=== PATIENT | male | born 1980 | race Caucasian/White ===

== ENCOUNTER 2022-07-26 10:30 | Outpatient (CLI) | payer OTHER, SELFPAY ==
--- NOTE | ~2022-07-26 | CT_ITS ---
EXAMINATION: CT abdomen pelvis w con DATE: 07/26/2022 11:01 INDICATION: Left-sided abdominal pain and tenderness TECHNIQUE: Computed tomography (CT) of the abdomen and pelvis was performed with 100 mL Omnipaque-350 intravenous contrast. Automated exposure control and iterative reconstruction technique were employe d. The dose-length product was 1671.52 mGy-cm. COMPARISON: None FINDINGS: 5-6 mm left lower lobe nodule. Heart size is normal. No pericardial or pleural effusion. Liver, gallb ladder, spleen, pancreas, bilateral adrenal glands and kidneys are normal. No abnormal bowel wall thi ckening or obstruction. Normal appendix. Bladder is normal. No free intraperitoneal gas or fluid. No pathologically enlarged abdominal or pelvic lymphadenopathy. Old healed right posterior right 11th ri b fracture. 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 IMPRESSION: 1. No acute intra-abdominal/pelvic process. 2. Indeterminate 5-6 mm left lower lobe pulmonary nodule. If the patient is low risk for lung cancer, no follow-up is needed. If the patient is high risk (i.e., history of smoking or asbestos or signifi cant radiation exposure), optional follow-up chest CT could be considered at 12 months. Reviewed, dictated and finalized at location L. ORKS COMPUTER CONSULTANT IMPRESSION: 1. No acute intra-abdominal/pelvic process. 2. Indeterminate 5-6 mm left lower lobe pulmonary nodule. If the patient is low risk for lung cancer, no follow-up is needed. If the patient is high risk (i.e ., history of smoking or asbestos or significant radiation exposure), optional follow-up chest CT could be considered at 12 months.
[2022-07-26 10:53] LABS: Estimated Glomerular Filt Rate > 60
[2022-07-26 11:39] LABS: Basophils Percent Auto 0.4 % (0.2-1.2); Eosinophils Absolute Auto 0.2 K/mm3 (0-0.3); Eosinophils Percent Auto 2.7 % (0-4.4); Hematocrit 44.2 % (42.0-52.0); Hemoglobin 14.7 g/dL (14.0-18.0); Immature Granulocyte Absolute 0.03 K/mm3 (0.00-0.031); Immature Granulocyte Percent A 0.4 % (0-0.5); Lymphocytes Absolute Auto 1.88 K/mm3 (0.9-3.2); Lymphocytes Percent Auto 26.8 % (18.3-44.2); Mean Corpuscular HGB Conc 33.3 g/dl (32-36); Mean Corpuscular Volume 96.3 fl (80-100); Mean Platelet Volume 10.8 fl (7.4-10.4); Monocytes Absolute Auto 0.5 K/mm3 (0.1-0.6); Monocytes Percent Auto 6.7 % (2.6-8.5); Neutrophils Absolute Auto 4.4 K/mm3 (1.3-6.7); Platelet Count Result 188 k/mm3 (150-375); Red Blood Count 4.59 M/mm3 (4.6-6.20)
[2022-07-26 11:47] LABS: Alanine Aminotransferase 38 U/L (6-50); Albumin Level 4.4 g/dL (3.5-5.1); Alkaline Phosphatase 69 U/L (38-126); Anion Gap 4 mmol/L (8-16); Aspartate Amino Transferase 36 U/L (17-59); Bilirubin,Total 0.7 mg/dL (0.2-1.3); Blood Urea Nitrogen 13 mg/dL (9-20); Calcium 8.9 mg/dL (8.4-10.2); Carbon Dioxide 27 mmol/L (22-30); Chloride 102 mmol/L (98-107); Cholesterol 108 mg/dL (0-200); Estimated Glomerular Filt Rate > 60; Glucose 103 mg/dL (65-110); HDL Direct 48 mg/dL; Potassium 4.7 mmol/L (3.4-5.0); Sodium 133 mmol/L (137-145); Triglycerides 69 mg/dL (<150)
[2022-07-26 11:59] LABS: LDL Cholesterol Direct 39 mg/dL
[2022-07-26 13:47] LABS: Prostate Specific Antigen 0.5 ng/mL (< OR = 4.0)
[2022-07-26 14:48] LABS: Vitamin D 25 Hydroxy 14.6 ng/mL
== END 2022-07-26 10:31 | disposition home or self-care (01) ==
PROVIDERS: PCP Family Medicine; Visit Provider Nurse Practitioner Family
DX: R10.9 Unspecified abdominal pain (principal); R10.819 Abdominal tenderness, unspecified site; R91.8 Other nonspecific abnormal finding of lung field; E78.49 Other hyperlipidemia; E55.9 Vitamin D deficiency, unspecified; Z12.5 Encounter for screening for malignant neoplasm of prostate; Z13.29 Encounter for screening for other suspected endocrine disorder
CPT/HCPCS: 74177; 80053; 80061; 82306; 84153; 84443; 85025; G0103; Q9967

== ENCOUNTER 2023-07-25 15:24 | Outpatient (CLI) | payer OTHER, SELFPAY ==
--- NOTE | ~2023-07-25 | XR_ITS ---
EXAMINATION: XR hand LT 2V DATE: 07/25/2023 15:42 INDICATION: Left hand pain. TECHNIQUE: 2 views of left hand were obtained. COMPARISON: None. FINDINGS: Bone alignment is normal. No fracture. Joint spaces are normal. IMPRESSION: 1. Normal left hand. Reviewed, dictated and finalized at location E. LE FUSION MIDDLEWARE ARCHITECT IMPRESSION: 1. Normal left hand.
== END 2023-07-25 15:25 | disposition home or self-care (01) ==
LOC: ANHIMG 15:26
PROVIDERS: PCP Family Medicine; Visit Provider Nurse Practitioner Family
DX: M79.642 Pain in left hand (principal)
CPT/HCPCS: 73120

== ENCOUNTER 2023-08-14 13:32 | Outpatient (CLI) | payer OTHER, SELFPAY ==
--- NOTE | ~2023-08-14 | CT_ITS ---
CT Scan of the Chest without Contrast: Clinical Indication: Pulmonary nodule Technique: Contiguous sections were acquired throughout the chest without intravenous contrast. Dose reduction technique was used on this scan by utilizing automated exposure control and iterative recon struction technique. The dose-length product (DLP) was 596.50 mGy-cm. Findings: There is no evidence of any significant mediastinal, hilar or axillary lymphadenopathy. The mediastin al soft tissues appear normal. There is no evidence of pleural or pericardial effusion. 3 mm pulmonary nodule in the posterior right upper lobe (axial image 29). There are 2 subcentimeter p leural-based nodules at the right lung base (axial image 69). There is a 4 mm nodule along the left f issure (axial image 50). Additional 5 mm nodule adjacent to the left fissure is also present (axial i mage 53). Additional 5 mm nodule noted more inferiorly in the left lower lobe (axial image 71). Images through the upper abdomen reveal no abnormalities. Impression: Subcentimeter pulmonary nodules, as above. According to Fleischner Society criteria, for a low-risk p atient, no further follow-up required. For a high-risk patient, consider 12 month follow-up CT. Reviewed, dictated and finalized at location M. ION OPERATOR Impression: Subcentimeter pulmonary nodules, as above. According to Fleischner Society mandi rivas, for a low-risk patient, no further follow-up required. For a high-risk pa tient, consider 12 month follow-up CT.
== END 2023-08-14 13:33 | disposition home or self-care (01) ==
PROVIDERS: PCP Family Medicine; Visit Provider Nurse Practitioner Family
DX: R91.1 Solitary pulmonary nodule (principal); R91.8 Other nonspecific abnormal finding of lung field
CPT/HCPCS: 71250

== ENCOUNTER 2024-08-07 10:02 | Outpatient (CLI) | payer BC, SELFPAY ==
--- NOTE | ~2024-08-07 | CT_ITS ---
CT Scan of the Chest without Contrast: Clinical Indication: Abnormal finding of lung field Technique: Contiguous sections were acquired throughout the chest without intravenous contrast. Dose reduction technique was used on this scan by utilizing automated exposure control and iterative recon struction technique. The dose-length product (DLP) was 1061.09 mGy-cm. COMPARISON: 08/14/2023 Findings: There is no evidence of any significant mediastinal, hilar or axillary lymphadenopathy. The mediastin al soft tissues appear normal. There is no evidence of pleural or pericardial effusion. Stable subcentimeter pleural-based nodules right lower lobe. Stable subcentimeter left lower lobe nod ules, especially along the fissure. Images through the upper abdomen reveal no abnormalities. Impression: Stable subcentimeter pulmonary nodules, as above. Reviewed, dictated and finalized at [facility]. INFORMATICA ARCHITECT Impression: Stable subcentimeter pulmonary nodules, as above.
--- OUTSIDE RECORDS SUMMARY | 2024-08-07 11:02 | XMS_ITS | Clinical Summary ---
Author Organization [facility] Address [address] [place] [address] Care Team Providers Care Combination Man Name Role Phone Perez Fortune MD Primary Care Provider + Allergies No known active allergies Medications prasugreL (EFFIENT) 10 mg Tablet Take 1 Tablet by mouth daily. 05/31/2021 Active folic acid (FOLVITE) 1 mg tablet 07/12/2021 Active atorvastatin (LIPITOR) 40 mg tablet Take 40 mg by mouth daily. 03/25/2020 Active atenoloL (TENORMIN) 25 mg tablet 04/29/2021 Active enalapril (VASOTEC) 10 mg tablet Take 1 Tablet by mouth daily. 05/07/2021 Active aspirin (ECOTRIN EC) 81 mg Tablet, Delayed Release (E.C.) Take 81 mg by mouth daily. Active folic acid-Vit B6-Vit B12 (FOLTX) 2.5-25-2 mg Tablet Take 1 Tablet by mouth daily. 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 Family History Medical History Relation Name Comments Diabetes Brother SLE Mother Relation Name Status Comments Brother Alive Daughter 1 Alive Daughter 2 Alive Father Alive Mother Alive Sister Alive hyperhomocystin emia Son Alive Social History Tobacco Use Types Packs/Day Years Used Date Smoking Tobacco: Every Day Cigarettes Smokeless Tobacco: Never Alcohol Use Standard Drinks/Week Comments Yes 0 (1 standard drink = 0.6 oz pur e alcohol) Sex and Gender Information Value Date Recorded Sex Assigned at Not on file Legal Sex Male 1:46 PM ART GILDER Gender Identity Not on file Sexual Orientation Not on file Last Filed Vital Signs Vital Sign Reading Time Taken Comments Blood Pressure 123/85 07/14/2021 3:27 PM ART GILDER Pulse 91 07/14/2021 3:27 PM ART GILDER Temperature 37 ??C (98.6 ??F) 07/14/2021 3:27 PM ART GILDER Respiratory Rate - - Oxygen Saturation 95% 07/14/2021 3:27 PM ART GILDER Inhaled Oxygen Concentration - - Weight 170.4 kg (375 lb 9.6 oz) 07/14/2021 3:27 PM ART GILDER Height 182.9 cm (6') 07/14/2021 3:27 PM ART GILDER Body Mass Index 50.94 07/14/2021 3:27 PM ART GILDER Plan of Treatment Health Maintenance Due Date Last Done Comments PNEUMOCOCCAL VACCINE 0-64 YE ARS (1 of 2 - PCV) 1987 DTAP/TDAP/TD VACCINES (1 - Tdap) 2000 HEPATITIS B VACCINES (1 of 3 - 19+ 3-dose series) 2000 INFLUENZA VACCINE (#1) 2024 Preventative Visit- Commercial 07/03/2024 HPV VACCINES Aged Out No longer eligi ble based on patient's age to complete this topic Insurance [facility] [address] [id number] Care Teams Combination Man Relationship Specialty Start Date End Date Perez Fortune MD PCP - General Internal Medicine 07/14/21
--- OUTSIDE RECORDS SUMMARY | 2024-08-07 11:02 | XMS_ITS | Clinical Summary ---
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 Gender Identity Not on file Sexual Orientation Not on file Plan of Treatment Health Maintenance Due Date Last Done Comments Annual Physical 1984 Hepatitis C 1999 DTaP, Tdap and Td Vaccines (1 - Tdap) 2000 03/05/1986, 07/07/1982, 02/01/1982, Additional history exists Hepatitis B Vaccines (1 of 3 - 19+ 3-dose series) 2000 COVID-19 Vaccine (2023- season) 2024 Influenza Adult (#1) 2024 HPV Vaccines Aged Out No longer eligi ble based on patient's age to complete this topic Meningococcal B Vaccine Aged Out No l onger eligible based on patient's age to complete this topic Meningococcal Vaccine Aged Out No kimberly tyrell eligible based on patient's age to complete this topic Pneumococcal Vaccine: Pediatrics (0 to 5 Years) and At-Risk Patients (6 to 64 Years) Aged Out No longer eligible based on patient's age to complete this topic RSV Immunizations Under 20 Months Aged Out No longer eligible based on patient's age to complete this topic Insurance [facility] Care Teams Tank Cooper Relationship Specialty Start Date End Date Bebeto Wayne MD [address] [address] PCP - General FAMILY PRACTICE 11/13/19
--- OUTSIDE RECORDS SUMMARY | 2024-08-07 11:02 | XMS_ITS | Clinical Summary ---
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 Gender Identity Not on file Sexual Orientation Not on file Plan of Treatment Health Maintenance Due Date Last Done Comments Hepatitis C Virus (HCV) Screening 1981 Hepatitis B Immunization (1 of 3 - 19+ 3-dose series) 2000 Influenza Immunization (#1) 2024 SARS-COV-2 Immunization ( season) 2024 Respiratory Syncytial Virus (RSV) Immunization (Adult) (1 - 1-dose 75+ series) 2056 DTaP/Tdap/Td Immunization Discontinued 2012, 03/08/1995, 03/05/1986, Additional history exists TdaP Immunization Completed 10/18/2012 Meningococcal Immunization (ACWY) Aged Out No longer eligible based on patient's age to complete this topic Pneumococcal Immunization Combined Aged Out No longer eligible based on patient's age to complete this topic Rotavirus Immunization Aged Out No lo nger eligible based on patient's age to complete this topic
--- OUTSIDE RECORDS SUMMARY | 2024-08-07 11:02 | XMS_ITS | Referral Summary ---
Author Organization [facility] [address] Address [address] [place] [address] Care Team Providers Care Inventory Control/Shipping Receiving Name Role Phone Bebeto Wayne MD Primary Care Provider [phone] Allergies No known active allergies Medications aspirin (ASPIRIN LOW DOSE) 81 mg tablet take 1 tablet (81MG) by oral route every day 0 3 Active atenoloL (TENORMIN) 25 mg tablet Take 1 tablet (25 mg total) by mouth daily 90 tablet 3 0 Active prasugreL (EFFIENT) tablet TAKE 1 TABLET DAILY 90 tablet 3 4 Active folic acid (FOLVITE) 1 mg tablet Take 1 tablet (1 mg total) by mouth daily 90 tablet 4 Active folic acid-vitamin B6-vitamin B12 (Folbic) 2.5-25-2 mg tablet Take 1 tablet by mouth daily 90 tablet 4 Active atorvastatin (LIPITOR) 40 mg tablet TAKE 1 TABLET DAILY 90 tablet 2 5 Active enalapril (VASOTEC) 10 mg tablet Take 1 tablet (10 mg total) by mouth daily 90 tablet 1 5 Active enalapril (VASOTEC) 10 mg tablet TAKE 1 TABLET DAILY 90 tablet 3 4 025 Discontinued(Re order) atorvastatin (LIPITOR) 40 mg tablet TAKE 1 TABLET DAILY 90 tablet 4 025 Discontinued Active Problems Problem Noted Date Diagnosed Date [place] (myocardial infarction) 03/14/2023 Mixed hyperlipidemia 05/21/2021 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 Morbid obesity with BMI of 45.0-49.9, adult 03/12/2018 Coronary artery disease invo lving [place] coronary artery of [place] heart without angina pectoris 05/31/2017 H/O non-ST elevation myocardial infarction (NSTE [place]) 05/31/2017 S/P coronary artery stent placement 05/31/2017 Anxiety 02/17/2015 Overview (10/07/2016): Anxiety Chest pain 04/14/2014 Overview (10/07/2016): Chest pain Resolved Problems Problem Noted Date Diagnosed Date Resolved Date Obesity (BMI 35.0-39.9 without comorbidity) 05/31/2017 11/26/2021 Dyslipidemia 05/31/2017 05/21/2021 Body mass index 40+ - severely obese 03/17/2016 10/28/2022 Overview (10/07/2016): Morbid obesity with BMI of 40.0-44.9, adult History of placement of sten t for coronary artery disease 05/26/2015 06/01/2022 Overview (10/07/2016): S/P coronary artery stent placement Social History Tobacco Use Types Packs/Day Years Used Date Smoking Tobacco: Former Smokeless Tobacco: Never Alcohol Use Standard Drinks/Week Comments No 0 (1 standard drink = 0.6 oz pur e alcohol) Sex and Gender Information Value Date Recorded Sex Assigned at Not on file Legal Sex Male 10:22 AM POLISHER IMPLANT Gender Identity Not on file Sexual Orientation Not on file Last Filed Vital Signs Vital Sign Reading Time Taken Comments Blood Pressure 124/76 02/15/2024 9:40 AM CDT Pulse 65 02/15/2024 9:40 AM CDT Temperature - - Respiratory Rate - - Oxygen Saturation 99% 02/15/2024 9:40 AM CDT Inhaled Oxygen Concentration - - Weight 155.4 kg (342 lb 8 oz) 02/15/2024 9:40 AM CDT Height 182.9 cm (6') 02/15/2024 9:40 AM CDT Body Mass Index 46.45 02/15/2024 9:40 AM CDT Plan of Treatment Not on file Insurance BLUE [employer] OOS Care Teams Inventory Control/Shipping Receiving Relationship Specialty Start Date End Date Bebeto Wayne MD PCP - General 09/30/16
--- OUTSIDE RECORDS SUMMARY | 2024-08-07 11:02 | XMS_ITS | Clinical Summary ---
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 Morbid obesity with BMI of 45.0-49.9, adult 12/2018 Coronary artery disease invo lving [place] coronary artery of [place] heart without angina pectoris 05/31/2017 H/O non-ST elevation myocardial infarction (NSTE [place]) 05/31/2017 S/P coronary artery stent placement 05/31/2017 [...] Overview (10/07/2016): S/P coronary artery stent placement Surgical History Surgery Date Site/Laterality Comments OTHER SURGICAL HISTORY 07/03/2010 - 07/02/2011 Coronary Stent Placement ([facility]) CARDIAC CATHETERIZATION CORONARY ANGIOPLASTY Medical History Medical History Date Comments Chronic coronary artery disease Coronary Artery Disease Myocardial infarction (HCC) Myoc ardial infarction Hx Other Medical Obesity, Morbid Hypertension Hypertension Hyperlipidemia [place] (myocardial infarction) (HCC) Clotting disorder (CMS/HCC) (HCC) Family History Medical History Relation Name Comments No Known Problems Father No Known Problems Mother Relation Name Status Comments Father Mother Social History Tobacco Use Types Packs/Day Years Used Date Smoking Tobacco: Former Smokeless Tobacco: Never Alcohol Use Standard Drinks/Week Comments No 0 (1 standard drink = 0.6 oz pur e alcohol) Sex and Gender Information Value Date Recorded Sex Assigned at Not on file Legal Sex Male 10:22 AM LEAF TINNER Gender Identity Not on file Sexual Orientation Not on file Obstetrics History Last Filed Vital Signs Vital Sign Reading [...] 02/15/2024 9:40 AM CDT Plan of Treatment Health Maintenance Due Date Last Done Comments Depression Screening 1981 Hepatitis C Screening 1981 Varicella Vaccines (1 of 2 - 13+ 2-dose series) 1994 Hepatitis B Screening 1999 Regular Well Visit/Exam 18-64 1999 DTaP/Tdap/Td Vaccine (7 - Td or Tdap) 10/18/2022 10/18/2012, 03/08/1995, 03/05/1986, Additional history exists Influenza Vaccine (#1) 2024 09/03/2014 HPV Vaccines Aged Out No longer eligi ble based on patient's age to complete this topic Pneumococcal vaccine <65 Aged Out No longer eligible based on patient's age to complete this topic Insurance [employer] OOS Care Teams Textile Machine Mechanic Relationship Specialty Start Date End Date Bebeto Wayne MD PCP - General 09/30/16
== END 2024-08-07 10:03 | disposition home or self-care (01) ==
PROVIDERS: PCP Family Medicine; Visit Provider Nurse Practitioner Family
DX: R91.8 Other nonspecific abnormal finding of lung field (principal)
CPT/HCPCS: 71250

== ENCOUNTER 2024-08-14 09:08 | Outpatient (CLI) | payer BC, SELFPAY ==
--- OUTSIDE RECORDS SUMMARY | 2024-08-14 09:47 | XMS_ITS | Clinical Summary ---
Author Organization [facility] [place] [address] Address [address] [place] [address] Care Team Providers Care Clothing Man Name Role Phone Bebeto Wayne MD Primary Care Provider [phone] Allergies No known active allergies Medications aspirin (ASPIRIN LOW DOSE) 81 mg tablet take 1 tablet (81MG) by oral route every day 0 3 Active atenoloL (TENORMIN) 25 mg tablet Take 1 tablet (25 mg total) by mouth daily 90 tablet 3 0 Active folic acid (FOLVITE) 1 mg tablet [...] mouth daily 90 tablet 1 5 Active prasugreL (EFFIENT) tablet Take 1 tablet (10 mg total) by mouth daily 90 tablet 1 5 Active enalapril (VASOTEC) 10 mg tablet TAKE 1 TABLET DAILY 90 tablet 3 4 025 Discontinued(Re order) prasugreL (EFFIENT) tablet TAKE 1 TABLET DAILY 90 tablet 3 4 025 Discontinued(Re order) atorvastatin (LIPITOR) 40 mg tablet TAKE 1 TABLET DAILY 90 tablet 4 025 Discontinued Active Problems Problem Noted Date Diagnosed Date [place] (myocardial infarction) 03/14/2023 Mixed hyperlipidemia 05/21/2021 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 Morbid obesity with BMI of 45.0-49.9, adult 12/2018 Coronary artery disease invo lving [place] coronary artery of [place] heart without angina pectoris 05/31/2017 H/O non-ST elevation myocardial infarction (NSTE [place]) 05/31/2017 S/P coronary artery stent placement 05/31/2017 [...] Other Medical Obesity, Morbid Hypertension Hypertension Hyperlipidemia [place] (myocardial infarction) (HCC) Clotting disorder (CMS/HCC) (HCC) [...] on file 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
--- OUTSIDE RECORDS SUMMARY | 2024-08-14 09:47 | XMS_ITS | Clinical Summary ---
Author Organization [facility] Address [address] [place] [address] Care Team Providers Care Professor Of Management Name Role Phone Perez Fortune MD Primary [...] on file Legal Sex Male 1:46 PM ELEPHANT TAMER Gender Identity Not on file Sexual Orientation Not on file Last Filed Vital Signs Vital Sign Reading Time Taken Comments Blood Pressure 123/85 07/14/2021 3:27 PM ELEPHANT TAMER Pulse 91 07/14/2021 3:27 PM ELEPHANT TAMER Temperature 37 C (98.6 F) 07/14/2021 3:27 PM ELEPHANT TAMER Respiratory Rate - - Oxygen Saturation 95% 07/14/2021 3:27 PM ELEPHANT TAMER Inhaled Oxygen Concentration - - Weight 170.4 kg (375 lb 9.6 oz) 07/14/2021 3:27 PM ELEPHANT TAMER Height 182.9 cm (6') 07/14/2021 3:27 PM ELEPHANT TAMER Body Mass Index 50.94 07/14/2021 3:27 PM ELEPHANT TAMER Plan of Treatment Health Maintenance Due Date Last Done Comments PNEUMOCOCCAL VACCINE 0-64 YE ARS (1 of 2 - PCV) 1987 DTAP/TDAP/TD VACCINES (1 - Tdap) 2000 HEPATITIS B VACCINES (1 of 3 - 19+ 3-dose series) 2000 INFLUENZA VACCINE (#1) 2024 Preventative Visit- Commercial 07/03/2024 HPV VACCINES Aged Out No longer eligi ble based on patient's age to complete this topic Insurance Care Teams Professor Of Management Relationship Specialty Start Date End Date Perez Fortune MD PCP - General Internal Medicine 07/14/21
--- OUTSIDE RECORDS SUMMARY | 2024-08-14 09:47 | XMS_ITS | Clinical Summary ---
Author Organization [facility] Address [address] [place] [address] Phone Care Team Providers Care Rivet Tester Name Role Phone Unavailable Primary Care Provider Unavailabl e Social History Tobacco Use Types Packs/Day Years Used Date Smoking Tobacco: Never Assessed Sex and Gender Information Value Date Recorded Sex Assigned at Not on file Legal Sex Male 11:26 AM SKIVER HAND Gender Identity Not on file Sexual Orientation [...]
--- OUTSIDE RECORDS SUMMARY | 2024-08-14 09:47 | XMS_ITS | Clinical Summary ---
Author Organization [facility] Address [address] [place] [address] Care Team Providers Care Manager Site Name Role Phone Bebeto Wayne MD Primary Care Provider [phone] Medications No known medications Active Problems Problem Noted Date Diagnosed Date Stress fracture of calcaneus 02/28/2020 Social History Tobacco Use Types Packs/Day Years Used Date Smoking Tobacco: Never Assessed Sex and Gender Information Value Date Recorded Sex Assigned at Not on file Legal Sex Male 9:58 PM BELLPERSON Gender Identity Not on file Sexual Orientation [...] patient's age to complete this topic Insurance [facility] Care Teams Manager Site Relationship Specialty Start Date End Date Bebeto Wayne MD [address] [place] [address] PCP - General FAMILY PRACTICE 11/13/19
--- OUTSIDE RECORDS SUMMARY | 2024-08-14 09:47 | XMS_ITS | Referral Summary ---
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
--- NOTE | 2024-08-14 11:00 | NEURO_ITS ---
Impression: # Complains of numbness of hands. Non-diabetic. ? # Mild bilateral Carpal Tunnel Syndrome, right more than left. ? # Bilateral ulnar neuropathy across the elbows. ? # Normal needle/EMG exam. ? # Clinical correlation recommended. Nerve Conduction Studies Anti Sensory Summary Table ?Stim Site NR Peak (ms) P-T Amp (?V) Site1 Site2 Delta-P (ms) Dist (cm) Edu (m/s) Left Median Anti Sensory (2-3nd Digit) Wrist ? 4.0 33.7 Wrist 2-3nd Digit 4.0 14.0 35 Wrist ? 4.0 34.9 Wrist 2-3nd Digit 4.0 14.0 35 Right Median Anti Sensory (2-3nd Digit) Wrist ? 4.6 20.3 Wrist 2-3nd Digit 4.6 14.0 30 Wrist ? 5.1 28.4 Wrist 2-3nd Digit 4.6 14.0 30 Left Radial Anti Sensory (Base 1st Digit) Wrist ? 2.2 10.8 Wrist Base 1st Digit 2.2 0.0 Right Radial Anti Sensory (Base 1st Digit) Wrist ? 2.3 10.1 Wrist Base 1st Digit 2.3 0.0 Left Ulnar Anti Sensory (5th Digit) Wrist ? 2.6 31.3 Wrist 5th Digit 2.6 14.0 54 Right Ulnar Anti Sensory (5th Digit) Wrist ? 2.5 30.0 Wrist 5th Digit 2.5 14.0 56 Motor Summary Table ?Stim Site NR Onset (ms) O-P Amp (mV) Site1 Site2 Delta-0 (ms) Dist (cm) Edu (m/s) Left Median Motor (Abd Poll Brev) Wrist ? 4.1 5.7 Elbow Wrist 5.3 28.0 53 Elbow ? 9.4 4.6 Right Median Motor (Abd Poll Brev) Wrist ? 4.9 4.3 Elbow Wrist 5.3 29.0 55 Elbow ? 10.2 4.1 Left Ulnar Motor (Abd Dig Minimi) Wrist ? 2.7 5.7 A Elbow Wrist 6.2 29.0 47 A Elbow ? 8.9 3.7 B Elbow Wrist 3.7 22.0 59 B Elbow ? 6.4 5.8 Right Ulnar Motor (Abd Dig Minimi) Wrist ? 3.0 6.0 A Elbow Wrist 6.1 30.0 49 A Elbow ? 9.1 4.4 B Elbow Wrist 4.4 24.0 55 B Elbow ? 7.4 4.6 F Wave Studies ?NR F-Lat (ms) L-R F-Lat (ms) Left Median (Mrkrs) (Abd Poll Brev) ? 33.18 0.45 Right Median (Mrkrs) (Abd Poll Brev) ? 33.63 0.45 Left Ulnar (Mrkrs) (Abd Dig Min) ? 32.12 0.45 Right Ulnar (Mrkrs) (Abd Dig Min) ? 31.67 0.45 EMG ?Side Muscle Nerve Root Ins Act Fibs Amp Dur Recrt Comment Right 1stDorInt Ulnar C8-T1 Nml Nml Nml Nml Nml Right Ext Indicis Radial (Post Int) C7-8 Nml Nml Nml Nml Nml Right Ext Digitorum Radial (Post Int) C7-8 Nml Nml Nml Nml Nml Right BrachioRad Radial C5-6 Nml Nml Nml Nml Nml Right PronatorTeres Median C6-7 Nml Nml Nml Nml Nml Right Abd Poll Brev Median C8-T1 Nml Nml Nml Nml Nml Right ABD Dig Min Ulnar C8-T1 Nml Nml Nml Nml Nml Left 1stDorInt Ulnar C8-T1 Nml Nml Nml Nml Nml Left Ext Indicis Radial (Post Int) C7-8 Nml Nml Nml Nml Nml Left Ext Digitorum Radial (Post Int) C7-8 Nml Nml Nml Nml Nml Left BrachioRad Radial C5-6 Nml Nml Nml Nml Nml Left PronatorTeres Median C6-7 Nml Nml Nml Nml Nml Left Abd Poll Brev Median C8-T1 Nml Nml Nml Nml Nml Left ABD Dig Min Ulnar C8-T1 Nml Nml Nml Nml Nml MTDD
== END 2024-08-14 09:09 | disposition home or self-care (01) ==
PROVIDERS: PCP Family Medicine; Visit Provider Plastic Surgery
DX: G56.03 Carpal tunnel syndrome, bilateral upper limbs (principal); G56.23 Lesion of ulnar nerve, bilateral upper limbs
CPT/HCPCS: 95886; 95911

== ENCOUNTER 2025-05-21 01:07 | Day surgery (SDC) | payer BC, SELFPAY ==
--- NOTE | 2025-05-09 13:44 | SUR.PREOP ---
[facility] has started construction of its new state of the art ER which will open Spring 2026. With this, we anticipate parking may be a challenge for some our surgical patients and families. Parking spaces are limited but are available for all Surgical, obstetrics, and ER patients sharing this lot. If you arrive and find you are having a hard time finding a parking space, please note that we understand the challenges, please drive around the hospital and park near Hospital Entrance 1. When you enter this entrance, you can ask a volunteer to direct or take you back to the surgical waiting area to check in. We appreciate everyone?s understanding of these expected challenges while we build for your future. Report to the Outpatient Waiting Room, entrance under the green pavilion located off [address], at time _11AM__ on date _05/21/25_. Planned Procedure Time: _1PM_.? Time changes happen often and if your time is changed the preop area will call you the afternoon before. - You and your visitor will be asked to self-screen and do not enter if you have any COVID symptoms. Please call surgeon if you need to reschedule. - A mask is optional within the hospital at this time. Patients may have no food/fluids after midnight. Take only the following medications with a SIP of water on the morning of surgery: _None_ DO NOT STOP ANY OF YOUR OTHER PRESCRIPTION MEDICATIONS PRIOR TO SURGERY EXCEPT THE FOLLOWING Hold all vitamins and supplements for 3 days per anesthesiologist. Medications to discontinue per physician _consult provider on aspirin and prasugrel regimen before procedure.___ Date to take last dose_of vitamins_05/17/25_ Please no make-up, nail japanese, hairspray, perfume, deodorant, or body powder the day of surgery.? No jewelry (including any body piercings) or valuables the day of surgery, leave them at home.? Please take a shower or bath the night before, or the morning of, surgery with an antibacterial soap.? Wear comfortable, loose fitting clothing.? - Jewelry must be removed prior to entering the operating room.? Rings and piercings that are not removed may be cut off. - The hospital will not accept responsibility for valuables.? - Please leave all valuables, including medications, at home the day of surgery. If you are going home after surgery, a licensed sales route driver helper must drive you home.? - NO public transportation without another adult if you receive anesthesia. - We recommend that an adult stay with you for 24 hours following discharge. - We also recommend that you do not drive, make important decision, drink alcoholic beverages, or take any drugs that were not prescribed by your health care provider for at least 24 hours after your discharge time. Follow any additional instructions given to you from your surgeon. Telephone instructions given to __Bill___and asked if any additional questions and then verbalized understanding. Patient advised to call surgeon office or pre surgery nurse liaison [phone] if any additional questions.
[2025-05-09 13:48] VITALS: BMI 44.8
--- NOTE | 2025-05-21 06:30 | P.OP_ITS ---
Procedure Note - Detailed Date of Procedure 05/21/25 Pre-op Diagnosis right carpal and cubital tunnel syndrome,R MF trigger finger Post-op Diagnosis Same Procedure Performed right ectr and CuTR and R MF a1 ani release Surgeon Sharmaine Terry MD Digital Marketing Executive Camille Gloria PA-C Anesthesia MAC Description of Procedure INFORMED CONSENT: The patient was seen and examined and marked in the pre-op area.? The patient signed the consent form. PROCEDURE IN DETAIL:The patient taken back to OR on the stretcher in supine position. Time out performed with anesthesia, surgeon and staff agreeing on patient's name site and surgery to be performed SCDs were placed on the lower extremities and inflated. A tourniquet was placed on {right} upper extremity and antibiotics given IV After anesthesia administered sedation I injected {10}cc 1%lido with epi and 0.5% marcaine plain at the operative site The?{right upper extremity}?was prepped and draped in sterile fashion the??{right upper extremity} was? exsanguinated with Esmarch bandage and tourniquet inflated to 250mmHg I made a transverse incision in the {right} volar distal wrist crease through skin and dermis with 15 blade scalpel.? Littler scissors spread down to antebrachial fascia. A small incision was made in antebrachial fascia allowing access to Carpal tunnel. I proceeded with sequential dilation staying in line with the ring finger and hugging the hook of the hamate.? I then used the synovial elevator to free any adhesions from the underside of the transverse carpal ligament. Next I was able to insert the Microaire endoscopic carpal tunnel device with direct visualization of the transverse fibers on the monitor and proceeded with complete segmental retrograde release of the ligament in its entirety.? I irrigated with normal saline and closed with 4-0 monocryl for dermis and subcuticular closure. Next I proceeded with making a longitudinal incision in the right middle finger palm over the A1 ani with 15 blade scalpel through skin and dermis. Littler scissors were used to spread through subcutaneous tissue down to the A1 ani. The A1 ani was identified and initially incised with a 15 blade scalpel. Littler scissors were used to spread above and below it proximally and distally completing the transection entirely. Ragnell retractors used withdrawal the FDS and FDP tendons for inspection. The tendons were free of masses and synovitis and gliding smoothly in the sheath without triggering or crepitus. I irrigated with normal saline and closed with 4-0 chromic. I next proceeded with making a longitudinal incision between two heads for flexor carpi ulnaris at end of {right} cubital tunnel with 15 blade scalpel.? Littler scissors were used to spread down to FCU fascia.? An incision was made in FCU fascia and ulnar nerve identified exiting cubital tunnel.? I proceeded with complete retrograde release of the cubital tunnel including 7cm proximal for the intermuscular septum.? The nerve appeared healthy with visible vaso nervorum.? There was no subluxation on full elbow range of motion. ? I irrigated with normal saline and closure with 4-0 monocryl for dermis and subcuticular. The incisions were covered with xeroform in palm and Dermabond for wrist and elbow, then 4x4s, olga, and a posterior elbow and volar wrist splint for patient safety, security and comfort and secured with ranjeet bandages after the tourniquet was let down noting the hand was warm and well perfused.? Patient awaken from anesthesia and transferred to recovery in stable condition Complications - none EBL- 1cc Disposition - home in stable condition Camille Gloria PA-C was essential for positioning, retraction, closure and dressing placement. [facility] Billing Surgery - Charge Forward: Surgery Billing ([id number] same for camille carmona )
--- NOTE | 2025-05-21 06:30 | WPDHPUPDATE1 ---
History and Physical Update Update Date/Time: 05/21/25 06:30 Patient seen and examined in pre-operative holding area. No interval change in medical history or symptoms. Patient recalls previous discussion of benefits and alternatives to procedure. Continues to desire to proceed with right endoscopic possible open carpal tunnel release, right cubital tunnel release and right middle finger a1 ani release . Reviewed procedure, post-op expectations and risks including but not limited to bleeding, infection, injury to tendon/nerve/vessel, decreased hand function, stiffness, RSD, no change or worsening of symptoms. I discussed the possible use of assistants and their participation in the case. Patient stated understanding and signed the consent form wishing to proceed.
[2025-05-21 11:30] VITALS: BP 148/70; PULSE 68; RESP 16; TEMP 36.7; O2SAT 100
[2025-05-21] MEDS: ACETAMINOPHEN 500 MG TABLET 1000 MG PO (11:35)
--- NOTE | 2025-05-21 13:35 | WPDANESEPPF ---
Anes - Initial Pre Proc Eval Procedure: Operation Date: 05/21/25 12:15 Proposed Procedures p Right Endoscopic Carpal Tunnel Release, Possible Open, Right Cubital Tunnel Release - Sharmaine Terry MD s Right Middle Trigger Finger Release - Sharmaine Terry MD Date/Time: 05/21/25 13:35 Surgeon: Sharmaine Terry MD Pre Op Diagnosis: right carpal and cubital tunnel syndrome,trig fing Patient Data Age: 45 Gender: M Height: 1.83 m Weight: 153.3 kg Last Vital Signs Temp 98.0 F 05/21/25 11:30 Pulse 68 05/21/25 11:30 Resp 16 05/21/25 11:30 BP 148/70 H 05/21/25 11:30 Pulse Ox 100 05/21/25 11:30 O2 Del Method Room Air 05/21/25 11:30 Allergies Allergy/AdvReac Type Severity Reaction Status Date / Time No Known Allergies Allergy Verified 05/21/25 11:26 Home Medications ?Medication ?Instructions ?Recorded ?Confirmed ?Type atorvastatin 40 mg tablet 40 mg PO DAILY #90 tabs 05/06/21 05/21/25 Rx aspirin 81 mg tablet,delayed 81 mg PO DAILY 05/30/21 05/21/25 History release (Thierry Low Dose Aspirin) enalapril maleate 10 mg tablet 10 mg PO DAILY 05/30/21 05/21/25 History (Vasotec) prasugrel HCl 5 mg tablet (Effient) 5 mg PO DAILY 05/30/21 05/09/25 History atenolol 25 mg tablet See Rx Instructions .Route 01/06/25 05/21/25 Rx .COMPLEX #90 tabs folic acid-vit B6-vit B12 2.5 1 tablet PO DAILY #90 tabs 05/05/25 05/09/25 Rx mg-25 mg-2 mg tablet (Folbic) folic acid 1 mg tablet 3 mg PO DAILY 05/09/25 05/09/25 History hydrocodone 5 mg-acetaminophen 325 1 tablet PO Q6H PRN pain #12 tabs 05/21/25 Rx mg tablet Patient hx anesthesia problems: none Family hx anesthesia problems: none Results Review: All pre-operative results and documents have been reviewed as part of the pre-operative evaluation. [facility] Past Medical History Medical History BMI 45.0-49.9, adult Hyperhomocysteinemia Anxiety Hiatal hernia GERD (gastroesophageal reflux disease) Pneumonia HTN (hypertension) Hyperlipidemia CAD (coronary artery disease) Myocardial infarction Tonsillitis Surgical History Surgical History History of cardiac catheterization Stented coronary artery Hx of tonsillectomy Family History Family History Grandparent Hypertension Family history of coronary artery disease Father Family history of heart disease in male family member before age 55 Hypertension Mother Lupus Hereditary hyperhomocysteinemia Hypertension Sibling Diabetes mellitus Hereditary hyperhomocysteinemia Social History Social History Social History: Caffeine-daily Smoking packs per day: 0.25 Smoking cigarettes per day: 5.0 Years smoked: 7 Smoking pack-years: 1.75 Smoking status: Former smoker Tobacco type: cigarettes Second hand tobacco smoke exposure: Yes Smoking end date: 05/03/23 Additional smoking assessment comments: Pt quit smoking in 2009. Alcohol intake: current Substance use: current Substance use type: marijuana Do You Feel Safe in your Home?: Yes Lack of Transportation: No Lack of Food: Never True Current Housing: I Have Housing Concerned About Future Housing: No Difficulty Paying Gas/Electric Bills: No Difficulty Paying for Meds: No Currently Unemployed: No Education: High School Diploma/GED Difficulty w/ Childcare or Family Care: No Living arrangements: with family Occupation/Education: occupation Additional occupation/education comments: [employer] Gender identity (if verbalized by the patient): Male Spiritual care concerns: No Anes - Eval Final PreProcedure Day of Procedure 05/21/25 13:35 Patient weight: morbidly obese Lungs: normal air movement Airway: Mallampati scale class II and special considerations (Missing several, none loose. ) Neurological: alert and oriented Last oral intake: >/= 8 hours ASA classification: III Emergent: no Anesthetic plan: proceed Anesthesia type and monitoring: general GIVS and standard monitoring Results Review: All pre-operative results and documents have been reviewed as part of the pre-operative evaluation. Hx reviewed. S/p PTCA 2010 x 1, doing well since, cardio visit yearly without acute change. BMI 45 w good ET. Informed Consent: The patient's anesthetic plan and its attendant risks and benefits were discussed with the patient/family/POA. Questions were solicited and answers provided to the satisfaction of the patient/family/POA.
[2025-05-21] MEDS: LIDO 1%/EPINEPHRINE 1:100,000 50 ML VIAL 10 ML INFILTRATE (13:37)
[2025-05-21] MEDS: ceFAZolin 3 GM/D5W 100 ML 100 ML IVPB (13:37)
[2025-05-21] MEDS: BUPivacaine HCL 0.5% 10 ML AMP INFILTRATE (13:37)
[2025-05-21] MEDS: KETOROLAC 30 MG/ML VIAL (*BKC) IV PUSH (13:56)
[2025-05-21] MEDS: BACITRACIN OINTMENT 15 GM TUBE 1 APPLIC TOPICAL (14:10)
[2025-05-21 14:17] VITALS: BP 143/79; PULSE 75; RESP 16; O2SAT 97
[2025-05-21] MEDS: LACTATED RINGERS 1,000 ML 30 ML IV CONT (14:17)
[2025-05-21 14:45] VITALS: BP 158/83; PULSE 61; RESP 16; O2SAT 96
[2025-05-21 15:10] VITALS: BP 128/70; PULSE 52; RESP 16
== END 2025-05-21 15:22 | disposition home or self-care (01) ==
PROVIDERS: PCP Family Medicine; Visit Provider Plastic Surgery
PROC: 01N54ZZ Release Median Nerve, Percutaneous Endoscopic Approach (ICD-10-PCS; CPT 29848; principal; 2025-05-21 12:15)
PROC: (CPT 26055; 2025-05-21 12:15)
DX: G56.01 Carpal tunnel syndrome, right upper limb (principal); G56.21 Lesion of ulnar nerve, right upper limb; M65.331 Trigger finger, right middle finger; F12.90 Cannabis use, unspecified, uncomplicated; Z87.891 Personal history of nicotine dependence; E66.01 Morbid (severe) obesity due to excess calories; Z68.42 Body mass index [BMI] 45.0-49.9, adult
CPT/HCPCS: 29848; 64718; 26055; A9270; J0690; J1885; J2003; J2004; J2250; J2405; J2704; J3010; J7120